=== PATIENT | male | born 1935 | race Caucasian/White ===

== ENCOUNTER 2018-06-20 08:59 | Day surgery (SDC) | payer MEDICARE, OTHER ==
[2018-06-19 15:57] VITALS: BMI 25.2
[~2018-06-20] VITALS: Ht 177.8 cm; Wt 83.5 kg
[2018-06-20] VITALS (19 sets, daily range): BP systolic 132–155; BP diastolic 67–93; PULSE 54–64; RESP 8–45; Ht 177.8 cm; Wt 83.5 kg
[~2018-06-20 08:59] MED LIST: LISI-471 PO
[2018-06-20] MEDS ORDERED: ASPI81TA52 PO (09:50)
[2018-06-20] MEDS ORDERED: BRIM15DR2 BOTH EYES (09:51)
[2018-06-20] MEDS ORDERED: MIDAZOLAM 1 MG/ML 2 ML INJ ONE ×2 (10:19→10:29)
[2018-06-20] MEDS ORDERED: LIDOCAINE 1%/EPI (1:100,000) (MDV) 20 ML ONE (10:19)
[2018-06-20] MEDS ORDERED: FENTAnyl 50 MCG/ML VIAL ONE ×2 (10:20→10:29)
[2018-06-20] MEDS ORDERED: SOD CHLORIDE 0.9% 500 ML ONE (10:20)
[2018-06-20] MEDS ORDERED: POLYMYXIN/BACITRACIN 1L IRRIG IRR SCH (10:30)
[2018-06-20] MEDS ORDERED: CEFAZOLIN 2 GM/50 ML (PMX) 50 ML IVPB SCH (11:00)
[2018-06-20] MEDS ORDERED: ACETAMINOPHEN 325 MG TAB PO ONE (13:00)
[2018-06-20] MEDS ORDERED: LISINOPRIL 10 MG TAB PO ONE (13:00)
== END 2018-06-20 14:14 | disposition home or self-care (01) ==
LOC: SDS 08:59
PROVIDERS: ATTEND Internal Medicine Interventional Cardiology
DX: I45.5 Other specified heart block (principal); I10 Essential (primary) hypertension
CPT/HCPCS: 33207; 71045; 80053; 81003; 85025; 85610; 85730; 93005; C1786; C1898; J0690; J2250; J3010; J7040